=== PATIENT | female | born 1980 ===

== ENCOUNTER 2018-06-24 07:14 | Day surgery (SDC) | payer OTHER ==
[2018-06-21 05:59] VITALS: BMI 27.6
[2018-06-24 08:37] VITALS: O2SAT 100
[2018-06-24] MEDS ORDERED: cefOXitin IV 1 gm in Dextrose 1 GM/50 ML BAG IVPB ONE (08:42)
[2018-06-24] MEDS ORDERED: Propofol 10 mg/ml Inj (20 ML) ONE (08:59)
[2018-06-24] MEDS ORDERED: Midazolam 2 MG/2 ML VIAL ONE (08:59)
[2018-06-24] MEDS ORDERED: Lactated Ringer's 1,000 ML IV SCH (09:30)
[2018-06-24 11:12] VITALS: BP 129/78; PULSE 88; RESP 18; TEMP 98
--- NOTE | 2018-06-24 22:21 | OP ---
PROCEDURE DATE: 06/24/2018 PREOPERATIVE DIAGNOSIS: A 37-year-old 0, para 0 with a history of diabetes, renal disease, hypertension with meningorrhagia. POSTOPERATIVE DIAGNOSIS: A 37-year-old 0, para 0 with a history of diabetes, renal disease, hypertension with meningorrhagia and submucosal fibroid. SURGEON: Getachew Jay MD PERSONAL COUNSELOR: None. TYPE OF ANESTHESIA: General. ANESTHESIOLOGIST: Santiago Real MD COMPLICATIONS: None. ESTIMATED BLOOD LOSS: 20 mL. DEFICIT: 500 mL. DESCRIPTION OF PROCEDURE: After informed consent was obtained, the patient was brought to the operating room, placed on the table where general anesthesia was administered. She was prepped and draped in a normal sterile fashion. Uterus was examined and found to be about 7 weeks' size. No pelvic or adnexal mass. The anterior lip of cervix was grasped with a tenaculum. Gentle dilatation of the cervix was done. Hysteroscope was introduced and found the polyp to be on the posterior wall of the uterus; however, decision was to use the MyoSure. MyoSure was used to take out the fibroid. After that, sharp curettage of all the bartlett of uterus was done. It was ECC and was sent to . Pictures were taken. The patient tolerated the procedure well. Lap, sponge, and instrument counts were correct x2. Getachew Jay MD
== END 2018-06-24 11:23 | disposition home or self-care (01) ==
LOC: C.SDS 07:14
PROVIDERS: ATTEND Obstetrics & Gynecology
DX: N92.1 Excessive and frequent menstruation with irregular cycle (principal); D25.0 Submucous leiomyoma of uterus; E11.9 Type 2 diabetes mellitus without complications; I10 Essential (primary) hypertension; N28.9 Disorder of kidney and ureter, unspecified
CPT/HCPCS: 58558; 82948; 88305; J1100; J2250; J2270; J2405; J2704; J3010